=== PATIENT | male | born 1950 | race Caucasian/White ===

== ENCOUNTER 2018-03-01 06:42 | Emergency (ER) | payer MEDICARE, BC ==
--- NOTE | 2018-03-01 08:01 | EDM.PDOC ---
ED HPI GENERAL MEDICAL PROBLEM - General Chief Complaint: Neurological Problem Stated Complaint: SOMEWHAT CONFUSSED Time Seen by Provider: 03/01/18 07:57 Source of Information: Reports: Patient, Family History Limitations: Reports: No Limitations - History of Present Illness INITIAL COMMENTS - FREE TEXT/NARRATIVE: pt seemes somewhat vague with his history. He did some drinking last nite. He had 2 drinks and 2 shots. He seemed fine in the evening. He got up this am and he was slurring his words and he was off balance and he just did not seem to comprend things as usual. Onset: Today, Other (pt got up this am like this. ) Duration: Hour(s): Location: Reports: Head, Generalized Associated Symptoms: Reports: Other ( slurrd speech, off balance) - Related Data Allergies Allergy/AdvReac Type Severity Reaction Status Date / Time contrast IV Allergy Cannot Uncoded 03/01/18 07:58 Remember Home Meds: Home Meds Aspirin [Ecotrin] 325 mg PO DAILY 03/01/18 [History] Budesonide/Formoterol Fumarate [Symbicort 160-4.5 Mcg Inhaler] 1 puff INH ASDIRECTED 03/01/18 [History] Fluticasone Propionate [Flonase] 03/01/18 [History] Omeprazole 10 mg PO DAILY 03/01/18 [History] Sertraline [Zoloft] 03/01/18 [History] Terazosin [Hytrin] 2 mg PO DAILY 03/01/18 [History] Tiotropium [Spiriva Handihaler] 18 mcg INH ASDIRECTED 03/01/18 [History] amLODIPine Besylate [Amlodipine Besylate] 5 mg PO DAILY 03/01/18 [History] atorvaSTATin [Lipitor] 40 mg PO DAILY 03/01/18 [History] Past Medical History Respiratory History: Reports: COPD Genitourinary History: Reports: Other (See Below) Other Genitourinary History: urethra repait - Past Surgical History Cardiovascular Surgical History: Reports: Carotid Stents GI Surgical History: Reports: Hernia, Abdominal Social & Family History - Tobacco Use Smoking Status *Q: Never Smoker - Caffeine Use Caffeine Use: Reports: Coffee - Recreational Drug Use Recreational Drug Use: No ED ROS GENERAL - Review of Systems Review Of Systems: See Below Constitutional: Reports: No Symptoms HEENT: Reports: No Symptoms Respiratory: Reports: No Symptoms, Other (pt has a history of copd) Cardiovascular: Reports: No Symptoms Endocrine: Reports: No Symptoms GI/Abdominal: Reports: No Symptoms : Reports: No Symptoms Musculoskeletal: Reports: No Symptoms Skin: Reports: No Symptoms Neurological: Reports: Trouble Speaking, Difficulty Walking, Other ( pt seemes very off balance. ) ED EXAM, NEURO - Physical Exam Exam: See Below Text/Narrative:: pt arrived with a history of slurred speech and being very off balance. He just seemes quite different in terms of his comprehension level. Exam Limited By: No Limitations General Appearance: Alert, No Apparent Distress, Other (pupils are equal and reactive. ) Ears: Normal TMs Nose: Normal Inspection Throat/Mouth: Normal Inspection Head Exam: Atraumatic Neck: Normal Inspection Respiratory/Chest: No Respiratory Distress Cardiovascular: Regular Rate, Rhythm GI/Abdominal: Soft, Non-Tender (Male) Exam: Deferred Rectal (Males) Exam: Deferred Neurological: Alert, Oriented x 3, Other (pt is off balance) Back Exam: Normal Inspection Extremities: Normal Inspection Course - Vital Signs Last Recorded V/S: Last Vital Signs Temp 35.2 C 03/01/18 07:20 Pulse 64 03/01/18 07:20 Resp 15 03/01/18 07:20 BP 124/56 L 03/01/18 07:20 Pulse Ox 93 L 03/01/18 07:20 - Orders/Labs/Meds Orders: Active Orders 24 hr Category Date Time Status EKG Documentation Completion [RC] ASDIRECTED Care 03/01/18 08:01 Active Head wo Cont [CT] Stat Exams 03/01/18 07:56 Taken UA W/MICROSCOPIC [URIN] Urgent Lab 03/01/18 07:09 Ordered EKG 12 Lead [EK] Routine Ther 03/01/18 08:01 Ordered Labs: Laboratory Tests 03/01/18 03/01/18 03/01/18 Range/Units 07:09 07:09 07:56 WBC 7.7 (4.5-11.0) K/uL RBC 4.38 (4.30-5.90) M/uL Hgb 13.9 (12.0-15.0) g/dL Hct 40.8 (40.0-54.0) % MCV 93 (80-98) fL MCH 32 H (27-31) pg MCHC 34 (32-36) % Plt Count 333 (150-400) K/uL Neut % (Auto) 62 (36-66) % Lymph % (Auto) 28 (24-44) % [place] % (Auto) 9 H (2-6) % Eos % (Auto) 1 L (2-4) % Baso % (Auto) 0 (0-1) % Sodium 140 (140-148) mmol/L Potassium 3.8 (3.6-5.2) mmol/L Chloride 104 (100-108) mmol/L Carbon Dioxide 24 (21-32) mmol/L Anion Gap 11.6 (5.0-14.0) mmol/L BUN 14 (7-18) mg/dL Creatinine 1.0 (0.8-1.3) mg/dL Est Cr Clr Drug Dosing 70.05 mL/min Estimated GFR (MDRD) > 60 (>60) Glucose 118 H (74-106) mg/dL Calcium 8.5 (8.5-10.1) mg/dL Total Bilirubin 0.2 (0.2-1.0) mg/dL AST 34 (15-37) U/L ALT 37 (12-78) U/L Alkaline Phosphatase 121 H (46-116) U/L Troponin I (0.000-0.056) ng/mL Total Protein 6.9 (6.4-8.2) g/dL Albumin 3.2 L (3.4-5.0) g/dL Globulin 3.7 H (2.3-3.5) g/dL Albumin/Globulin Ratio 0.9 L (1.2-2.2) Ethyl Alcohol 307 mg/dL //18 Range/Units 08:01 WBC (4.5-11.0) K/uL RBC (4.30-5.90) M/uL Hgb (12.0-15.0) g/dL Hct (40.0-54.0) % MCV (80-98) fL MCH (27-31) pg MCHC (32-36) % Plt Count (150-400) K/uL Neut % (Auto) (36-66) % Lymph % (Auto) (24-44) % [place] % (Auto) (2-6) % Eos % (Auto) (2-4) % Baso % (Auto) (0-1) % Sodium (140-148) mmol/L Potassium (3.6-5.2) mmol/L Chloride (100-108) mmol/L Carbon Dioxide (21-32) mmol/L Anion Gap (5.0-14.0) mmol/L BUN (7-18) mg/dL Creatinine (0.8-1.3) mg/dL Est Cr Clr Drug Dosing mL/min Estimated GFR (MDRD) (>60) Glucose (74-106) mg/dL Calcium (8.5-10.1) mg/dL Total Bilirubin (0.2-1.0) mg/dL AST (15-37) U/L ALT (12-78) U/L Alkaline Phosphatase (46-116) U/L Troponin I < 0.017 (0.000-0.056) ng/mL Total Protein (6.4-8.2) g/dL Albumin (3.4-5.0) g/dL Globulin (2.3-3.5) g/dL Albumin/Globulin Ratio (1.2-2.2) Ethyl Alcohol mg/dL - Re-Assessments/Exams Free Text/Narrative Re-Assessment/Exam: 03/01/18 09:08 pt was found to have etoh of .307. According to his the only drinks he had are the ones she mixed . He must of had several drinks that the family was not aware of. He does have a past history of a etoh problem. He does not admit to having any drinks this am. He had a neg head scan. His lab work looked ok with no elevation in liver enzymes. Departure - Departure Time of Disposition: 09:11 Disposition: Home, Self-Care 01 Condition: Fair Clinical Impression: Intoxication - Discharge Information Referrals: PCP,None [Primary Care Provider] - Forms: ED Department Discharge Care Plan Goals: push fluids. As he racquel up if they are still concerned about his behavior the family will call us back. - My Orders Last 24 Hours: My Active Orders 03/01/18 07:09 UA W/MICROSCOPIC [URIN] Urgent 03/01/18 07:56 Head wo Cont [CT] Stat 03/01/18 08:01 EKG Documentation Completion [RC] ASDIRECTED EKG 12 Lead [EK] Routine - Assessment/Plan Last 24 Hours: My Active Orders 03/01/18 07:09 UA W/MICROSCOPIC [URIN] Urgent 03/01/18 07:56 Head wo Cont [CT] Stat 03/01/18 08:01 EKG Documentation Completion [RC] ASDIRECTED EKG 12 Lead [EK] Routine
== END 2018-03-01 09:31 | disposition home or self-care (01) ==
LOC: JP.ED 06:42
DX: F10.129 Alcohol abuse with intoxication, unspecified (principal); Y90.8 Blood alcohol level of 240 mg/100 ml or more; J44.9 Chronic obstructive pulmonary disease, unspecified; Z79.899 Other long term (current) drug therapy; Z91.041 Radiographic dye allergy status; Z79.82 Long term (current) use of aspirin
CPT/HCPCS: 36415; 70450; 80053; 84484; 85025; 93005; 99285; G0480

== ENCOUNTER 2020-02-11 19:30 | Emergency (ER) | payer MEDICARE, BC ==
[2020-02-11] MEDS ORDERED: Bacitracin Oint 1 GM U/D Packet TOP ONE (20:07)
[2020-02-11] MEDS ORDERED: Diphtheria,Pertussis(Acell),Tetanus Vaccine 0.5 ML SDV IM ONE (20:08)
--- NOTE | 2020-02-11 21:06 | EDM.PDOC ---
ED HPI GENERAL MEDICAL PROBLEM - General Chief Complaint: Laceration Stated Complaint: FALL - LEFT EYEBROW LACERATION Time Seen by Provider: 02/11/20 20:15 Source of Information: Reports: Patient, RN, RN Notes Reviewed History Limitations: Reports: No Limitations - History of Present Illness INITIAL COMMENTS - FREE TEXT/NARRATIVE: Enrrique is 69 year old male that presents to ED with a 3 cm laceration to left eyebrow. He was at home getting things ready to go and tripped over something hitting his head. He admits to drinking alcohol tonight and appears intoxicated. Denies LOC, headache, nausea, or vomiting. 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: Dressing(s) denies pain Pain Score (Numeric/FACES): 0 - Related Data Allergies Allergy/AdvReac Type Severity Reaction Status Date / Time contrast IV Allergy Hives Uncoded 02/11/20 20:10 Home Meds: Home Meds Aspirin [Ecotrin EC] 325 mg PO DAILY 03/01/18 [History] Budesonide/Formoterol Fumarate [Symbicort 160-4.5 Mcg Inhaler] 1 puff INH ASDIRECTED 03/01/18 [History] Fluticasone Propionate [Flonase] 03/01/18 [History] Omeprazole 10 mg PO DAILY 03/01/18 [History] Sertraline [Zoloft] 03/01/18 [History] Terazosin [Hytrin] 2 mg PO DAILY 03/01/18 [History] Tiotropium [Spiriva Handihaler] 18 mcg INH ASDIRECTED 03/01/18 [History] amLODIPine Besylate [Amlodipine Besylate] 5 mg PO DAILY 03/01/18 [History] Past Medical History HEENT History: Reports: Impaired Vision, Other (See Below) Other HEENT History: glasses Cardiovascular History: Reports: High Cholesterol, Hypertension Respiratory History: Reports: COPD Genitourinary History: Reports: Prostate Disorder, Other (See Below) Other Genitourinary History: urethra repair Musculoskeletal History: Reports: Arthritis, Back Pain, Chronic, Neck Pain, Chronic Psychiatric History: Reports: Anxiety, Depression Dermatologic History: Reports: Other (See Below) Other Dermatologic History: skin lesions removed from bilateral ears - Infectious Disease History Infectious Disease History: Reports: Chicken Pox - Past Surgical History HEENT Surgical History: Reports: Tonsillectomy Cardiovascular Surgical History: Reports: Carotid Stents GI Surgical History: Reports: Hernia, Abdominal Social & Family History - Tobacco Use Smoking Status *Q: Current Every Day Smoker Years of Tobacco use: 50 Packs/Tins Daily: 1 - Caffeine Use Caffeine Use: Reports: Coffee, Soda - Recreational Drug Use Recreational Drug Use: No ED ROS GENERAL - Review of Systems Review Of Systems: See Below Constitutional: Reports: No Symptoms Skin: Reports: Other (laceration to left eyebrow) Neurological: Reports: No Symptoms ED EXAM, SKIN/RASH Exam: See Below Exam Limited By: No Limitations General Appearance: Alert, WD/WN Head: Atraumatic, Normocephalic Skin: Warm, Dry, Wound/Incision, Other (3 cm laceration located to medial left eyebrow above the nasal bridge ) Location, Skin: Face ED SKIN PROCEDURES - Laceration/Wound Repair Left Medial Forehead Appearance: Superficial, Subcutaneous, Linear, Clean Distal NVT: Neuro & Vascular Intact Anesthetic Type: Local Local Anesthesia - Lidocaine (Xylocaine): 1% Plain Local Anesthetic Volume: 3cc Skin Prep: Chlorhexidine (Hibiciens) Exploration/Debridement/Repair: No Foreign Material Found Closed with: Sutures Lac/Wound length In cm: 3 Suture Size: 6-0 # of Sutures: 5 Suture Type: Prolene, Interrupted Suture Size: 5-0 # of Sutures: 2 Repaired with: Chromic Sterile Dressing Applied: Nurse Tetanus Status Addressed: Yes Course - Vital Signs Last Recorded V/S: Last Vital Signs Temp 98.0 F 02/11/20 20:12 Pulse 65 02/11/20 20:12 Resp 16 02/11/20 20:12 BP 132/75 02/11/20 20:12 Pulse Ox 96 02/11/20 20:12 - Orders/Labs/Meds Orders: Active Orders 24 hr Category Date Time Status Vaccines to be Administered [RC] PER UNIT ROUTINE Care 02/11/20 20:09 Active Meds: Medications Discontinued Medications Generic Name Dose Route Start Last Admin Trade Name Freq PRN Reason Stop Dose Admin Acetaminophen 1,000 mg 02/11/20 21:13 Tylenol Extra Strength PO 02/11/20 21:14 ONETIME ONE Bacitracin 1 dose 02/11/20 20:07 02/11/20 20:24 Bacitracin Oint 1 Gm TOP 02/11/20 20:08 1 dose ONETIME ONE Administration Diphtheria/Tetanus/Acell Pertussis 0.5 ml 02/11/20 20:08 02/11/20 20:24 Adacel IM 02/11/20 20:09 0.5 ml .ONCE ONE Administration Lidocaine HCl 5 ml 02/11/20 20:07 02/11/20 20:25 Xylocaine-Mpf 1% INJECT 02/11/20 20:08 5 ml ONETIME ONE Administration Departure - Departure Time of Disposition: 21:17 Disposition: Home, Self-Care 01 Condition: Good Clinical Impression: Laceration of forehead without complication - Discharge Information *PRESCRIPTION DRUG MONITORING PROGRAM REVIEWED*: Not Applicable *COPY OF PRESCRIPTION DRUG MONITORING REPORT IN PATIENT BRONWYN: Not Applicable Instructions: Laceration Care, Adult, [id number] Referrals: PCP,None [Primary Care Provider] - Forms: ED Department Discharge Additional Instructions: leave pressure dressing on until tomorrow. do not use anymore ointments on wound. keep clean and dry. pat wound dry after cleaning- do not rub. leave open to air. suture removal in 6 days. watch for signs of infection and see your PCP if they develop (redness, warmth, drainage) Sepsis Event Note - Evaluation Sepsis Screening Result: No Definite Risk - Focused Exam Vital Signs: Vital Signs Temp Pulse Resp BP Pulse Ox 02/11/20 20:12 98.0 F 65 16 132/75 96 02/11/20 20:02 98.0 F 65 16 132/75 96 Date Exam was Performed: 02/11/20 Time Exam was Performed: 21:14 - My Orders Last 24 Hours: My Active Orders 02/11/20 20:09 Vaccines to be Administered [RC] PER UNIT ROUTINE - Assessment/Plan Last 24 Hours: My Active Orders 02/11/20 20:09 Vaccines to be Administered [RC] PER UNIT ROUTINE Assessment:: laceration of forehead- tolerated repair well. Plan: leave pressure dressing on until tomorrow. do not use anymore ointments on wound. keep clean and dry. pat wound dry after cleaning- do not rub. leave open to air. suture removal in 6 days. watch for signs of infection and see your PCP if they develop (redness, warmth, drainage)
[2020-02-11] MEDS ORDERED: Acetaminophen 500 MG Tab PO ONE (21:13)
== END 2020-02-11 21:36 | disposition home or self-care (01) ==
LOC: JP.ED 19:30
DX: S01.81XA Laceration without foreign body of other part of head, initial encounter (principal); I10 Essential (primary) hypertension; J44.9 Chronic obstructive pulmonary disease, unspecified; F41.9 Anxiety disorder, unspecified; F32.9 Major depressive disorder, single episode, unspecified; F17.210 Nicotine dependence, cigarettes, uncomplicated; Z23 Encounter for immunization; Z79.82 Long term (current) use of aspirin; Z91.041 Radiographic dye allergy status; Z79.899 Other long term (current) drug therapy; W01.10XA Fall on same level from slipping, tripping and stumbling with subsequent striking against unspecified object, initial encounter
CPT/HCPCS: 12013; 90471; 90715; 99282; A9270; J2001